=== PATIENT | male | born 1960 | race Hispanic/Latino ===

== ENCOUNTER → 2018-11-28 | Outpatient (CLI) | payer BC ==
--- NOTE | 2018-11-28 11:52 | Diagnostic Imaging Report ---
Right knee MRI without contrast. History: Knee pain. Medial meniscus tear. Swelling. Sports injury. Decreased range of motion. Comparison: None. Technique: Multiplanar multi-sequence MRI of the knee without contrast. Findings: Medial compartment: There is a complex tear involving the posterior horn and body segments of the medial meniscus best seen on sagittal image 17. The medial compartmental articular cartilage surfaces are thin with regions of fraying and deep fissuring. There are peripheral marginal osteophytes. The medial collateral ligament complex is intact Lateral compartment: There is an obliquely oriented lateral meniscus tear involving the posterior horn and body segments best seen on coronal image 13. The lateral compartmental articular cartilage surfaces are thin with regions of fraying and deep fissuring. There are peripheral marginal osteophytes. The lateral collateral complex is intact. Intercondylar notch: There is a chronic appearing near full-thickness posterior cruciate ligament tear. A few fibers appear to be intact. There is scarring and degeneration with chronic appearing partial tearing of the anterior cruciate ligament. The anterior cruciate ligament has a celery stalk appearance. Patellofemoral compartment: There is articular cartilage fraying and deep fissuring in the patellofemoral compartment. Extensor mechanism: The quadriceps and patellar tendons are normal. Other findings: There is a joint effusion and synovitis. There is no acute fracture, subluxation or avascular necrosis. There is a lobulated septated Arias's cyst with evidence of partial rupture into the posterior soft tissues. There is a thin medial plica. IMPRESSION: Complex medial meniscus tear with associated degenerative arthrosis in the medial compartment of the knee. Obliquely oriented lateral meniscus tear with associated degenerative arthrosis in the lateral compartment of the knee. Chronic appearing near full-thickness posterior cruciate ligament tear. A few fibers appear to be intact. There is scarring and degeneration with chronic appearing partial tearing of the anterior cruciate ligament. The anterior cruciate ligament has a celery stalk appearance. Joint effusion, synovitis, lobulated septated Arias's cyst with evidence of partial rupture into the posterior soft tissues and thin medial plica. Signed by: Dr. Franklyn Preciado M.D. on 11/28/2018 11:48 AM
--- NOTE | 2018-11-28 12:02 | Diagnostic Imaging Report ---
Left knee MRI without contrast. History: Knee pain. Medial meniscus tear. Swelling. Sports injury. Decreased range of motion. Comparison: None. Technique: Multiplanar multi-sequence MRI of the knee without contrast. Findings: Medial compartment: There is a complex tear involving the posterior horn and body segments of the medial meniscus best seen on sagittal image 26 and 27. The medial compartmental articular cartilage surfaces are thin with regions of fraying and deep fissuring. There are peripheral marginal osteophytes. The medial collateral ligament complex is intact Lateral compartment: There is maceration of the lateral meniscus. Meniscal tissue is displaced to the periphery. There are regions of full-thickness articular cartilage loss in the lateral compartment with underlying bone marrow edema. The lateral collateral complex is intact. There is what appears to be a small enchondroma in the distal lateral peripheral femoral condyle. There is what appears to be a degenerative cyst in the posterior lateral tibial plateau. Intercondylar notch: There is scarring and degeneration of the cruciate ligaments. The cruciate ligaments are otherwise intact. Patellofemoral compartment: There is articular cartilage fraying and fissuring in the patellofemoral compartment. Extensor mechanism: The quadriceps and patellar tendons are normal. Other findings: There is a joint effusion and marked synovitis with marked frondlike like hypertrophy of the fat predominantly in the suprapatellar space. There is no acute fracture, subluxation or avascular necrosis. There is a lobulated septated Arias's cyst. There is a thin medial plica. IMPRESSION: Maceration of the lateral meniscus with associated degenerative arthrosis in the lateral compartment of the knee. Complex medial meniscus tear with associated degenerative arthrosis in the medial compartment of the knee. Degeneration and scarring of the cruciate ligaments. The cruciate ligaments are otherwise intact. Joint effusion, synovitis, lobulated septated Arias's cyst, thin medial plica and marked frondlike like hypertrophy of the fat predominantly in the suprapatellar space Signed by: Dr. Franklyn Preciado M.D. on 11/28/2018 11:59 AM
== END ==
LOC: MRI 08:58
PROVIDERS: ATTEND Specialist
DX: S83.242A Other tear of medial meniscus, current injury, left knee, initial encounter (principal); S83.281A Other tear of lateral meniscus, current injury, right knee, initial encounter

== ENCOUNTER → 2018-12-20 | Day surgery (SDC) | payer BC ==
[~2018-12-20] MED LIST: BUPIVACAINE 0.5%/EPI 30 ML SDV INJ ONE; CEFAZOLIN SOD 2 GM/D5W 50ML 50 ML IV ONE; DESFLURANE 240 ML BTL INH ONE; DEXAMETHASONE SOD PHOS INJ 4 MG/ML VIAL ONE; EPHEDRINE SULFATE INJ 50 MG/10 ML SYR ONE; FENTANYL CITRATE/PF 100MCG/2 ML INJ ONE; GLYCOPYRROLATE INJ 1MG/ 5 ML SYR ONE; KETAMINE HCL INJ 50 MG/ML 10 ML VIAL ONE; LOSARTAN POTAS100 MG PO; MIDAZOLAM HCL 2 MG/2 ML VIAL ONE; ONDANSETRON HCL INJ 2MG/ML 2ML 2 MG/ML VIAL ONE; PROPOFOL IV EMULSION 10 MG/ML 20 ML VIAL ONE
--- OUTSIDE RECORDS SUMMARY | 2018-12-20 06:03 | XMS REPORT | Summary of Care ---
Author Author [facility] Organization [facility] Address Unknown Phone Unavailable Encounter HQ Sudheerr_morales(FIN) [id number] Date(s): 03/03/18 - 03/03/18 [facility] [address], [address] [place] [address]- [phone] Discharge Disposition: Home or Self Care Attending Physician: Kobe Watson MD Vital Signs Most recent to 1 oldest [Reference Range]: Height 167.64 cm (03/03/18 3:51 PM) Temperature Oral 97.0 DegF [96.4-99.1 DegF] (03/03/18 3:51 PM) Blood Pressure 141/91 mmHg [90-140/60-90 mmHg] *HI* (03/03/18 3:51 PM) Respiratory Rate 14 BRMIN [14-20 BRMIN] (03/03/18 3:51 PM) Peripheral Pulse 60 bpm Rate [60-100 bpm] (03/03/18 3:51 PM) Weight 99.261 kg (03/03/18 3:51 PM) Body Mass Index 35.32 m2 (03/03/18 3:51 PM) Problem List Condition Effective Dates Status Health Status Informant Hypertension(Confirm Active ed) Knee pain(Confirmed) Active Obesity(Confirmed) Active ED (erectile Active dysfunction)(Confirm ed) Skin tag(Confirmed) Active Allergies, Adverse Reactions, Alerts Substance Reaction Severity Status NKDA Active Medications valsartan 160 mg oral tablet 160 mg=1 tab, PO, Daily, # 90 tab, 1 Refill(s), Pharmacy: [facility] [id number] Start Date: 03/03/18 Status: Ordered Results No data available for this section Immunizations No data available for this section Procedures Procedure Date Related Diagnosis Body Site Status Colonoscopy1 05/15/12 Completed Operative procedure on finger2 Completed 1f/u 10 years 2right hand index finger Social History Social History Type Response Substance Abuse Use: None. Employment/School Status: Employed. Work/School description: mechanic and welder. Alcohol Current, Type Beer.1 Smoking Status Never smoker; Exposure to Tobacco Smoke None; Cigarette Smoking Last 365 Days No; Reg Smoking Cessation Counseling No entered on: 03/03/18 1socially Assessment and Plan No data available for this section
--- OUTSIDE RECORDS SUMMARY | 2018-12-20 06:03 | XMS REPORT | Continuity of Care Document ---
Author Author [facility] Address Unknown Phone Unavailable Problems Problem Status Onset Date Classification Date Reported Comments Source Hypertension Active Problem 10/09/2018 [facility] Obesity Active Problem 10/09/2018 [facility] ED (<span ID="[id number]">Confirmed</span>) Active Problem 10/09/2018 [facility] Anemia Active Problem 10/09/2018 [facility] IFG (<span ID="[id number]">Confirmed</span>) Active Problem 10/09/2018 [facility] Knee pain Active Problem 10/09/2018 [facility] Skin tag Active Problem 10/09/2018 [facility] Medications Medication Details Route Status Patient Instructions Ordering Provider Order Date Source losartan 100 mg oral tablet 100 mg=1 tab, PO, Daily, discontinue valsartan, # 90 tab, 1 Refill(s), Pharmacy: [facility] [id number] No Longer Active 03/21/2018 [facility] valsartan 160 mg oral tablet 160 mg=1 tab, PO, Daily, # 90 tab, 1 Refill(s), Pharmacy: [facility] [id number] Active 03/03/2018 [facility] valsartan 160 mg oral tablet 160 mg=1 tab, PO, Daily, # 30 tab, 3 Refill(s), Pharmacy: [facility] [id number] Active 09/09/2017 [facility] Allergies, Adverse Reactions, Alerts Substance Category Reaction Severity Reaction type Status Date Reported Comments Source Immunizations Immunization Date Given Site Status Last Updated Comments Source Results Order Name Results Value Reference Range Date Interpretation Comments Source Vital Signs Vital Sign Value Date Comments Source Weight 99.261 03/03/2018 [facility] BMI Calculated 35.32 03/03/2018 [facility] Height 167.64 cm 03/03/2018 [facility] Respitory Rate 14 03/03/2018 [facility] Temperature Oral (F) 97.0 F 03/03/2018 [facility] Heart Rate 60 03/03/2018 [facility] Systolic (mm Hg) 141 03/03/2018 [facility] Diastolic (mm Hg) 91 03/03/2018 [facility] BMI Calculated 34.67 09/09/2017 [facility] Weight 97.443 09/09/2017 [facility] Temperature Oral (F) 97.1 F 09/09/2017 [facility] Respitory Rate 14 09/09/2017 [facility] Height 167.64 cm 09/09/2017 [facility] Heart Rate 66 09/09/2017 [facility] Systolic (mm Hg) 134 09/09/2017 [facility] Diastolic (mm Hg) 76 09/09/2017 [facility] Encounters Location Location Details Encounter Type Encounter Number Reason For Visit Attending Provider ADM Date DC Date Status Source Outpatient [id number] NICANOR DAVID 10/08/2016 Active [facility] Outpatient [id number] NICANOR DAVID 10/25/2016 Active [facility] Outpatient [id number] NICANOR DAVID 11/09/2016 Active [facility] Outpatient [id number] NICANOR DAVID 01/14/2017 Active [facility] [id number] NICANOR DAVID 05/09/2017 Active [facility] Outpatient [id number] NICANOR DAVID 09/09/2017 Active [facility] Outpatient [id number] Nicanor David 09/09/2017 09/10/2017 [facility] Outpatient [id number] NICANOR DAVID 03/03/2018 Active [facility] Primary Care [facility] Outpatient [id number] Nicanor David 03/03/2018 03/04/2018 [facility] Phone Message [id number] 03/21/2018 03/23/2018 [facility] Outpatient [id number] NICANOR DAVID 08/11/2018 Active [facility] Outpatient [id number] NICANOR DAVID 03/02/2019 Active [facility] Procedures Procedure Code Date Perfomer Comments Source Colonoscopy<sup>1</sup> [id number] 05/15/2012 f/u 10 years [facility] Operative procedure on finger<sup>2</sup> [id number] right hand index finger [facility]
--- OUTSIDE RECORDS SUMMARY | 2018-12-20 06:03 | XMS REPORT | Summary of Care ---
Author Author [facility] Organization [facility] Address Unknown Phone Unavailable Encounter HQ Sudheerr_morales(FIN) [id number] Date(s): 09/09/17 - 09/09/17 [facility] [address], [address] [place] [address]- [phone] Discharge Disposition: Home or Self Care Attending Physician: Kobe Watson MD Vital Signs Most recent to 1 oldest [Reference Range]: Height 167.64 cm (09/09/17 8:35 AM) Temperature Oral 97.1 DegF [96.4-99.1 DegF] (09/09/17 8:35 AM) Blood Pressure 134/76 mmHg [90-140/60-90 mmHg] (09/09/17 8:35 AM) Respiratory Rate 14 BRMIN [14-20 BRMIN] (09/09/17 8:35 AM) Peripheral Pulse 66 bpm Rate [60-100 bpm] (09/09/17 8:35 AM) Weight 97.443 kg (09/09/17 8:35 AM) Body Mass Index 34.67 m2 (09/09/17 8:35 AM) Problem List Condition Effective Dates Status Health Status Informant Hypertension(Confirm Active ed) Obesity(Confirmed) Active ED (erectile Active dysfunction)(Confirm ed) Allergies, Adverse Reactions, Alerts Substance Reaction Severity Status NKDA Active Medications valsartan 160 mg oral tablet 160 mg=1 tab, PO, Daily, # 30 tab, 3 Refill(s), Pharmacy: [facility] 0 0429 Start Date: 09/09/17 Status: Ordered Results No data available for this section Immunizations No data available for this section Procedures Procedure Date Related Diagnosis Body Site Status Colonoscopy1 05/15/12 Completed Operative procedure on finger2 Completed 1f/u 10 years 2right hand index finger Social History Social History Type Response Substance Abuse Use: None. Employment/School Status: Employed. Work/School description: special class welder. Alcohol Current, Type Beer.1 Smoking Status Never smoker; Exposure to Tobacco Smoke None; Cigarette Smoking Last 365 Days No; Reg Smoking Cessation Counseling No entered on: 09/09/17 1socially Assessment and Plan No data available for this section
--- OUTSIDE RECORDS SUMMARY | 2018-12-20 06:03 | XMS REPORT | Summary of Care ---
Author Author [facility] Organization [facility] Address Unknown Phone Unavailable Encounter HQ Encntr_alias(FIN) [id number] Date(s): 03/21/18 - 03/22/18 [facility] [address], [address] [place] [address]- [phone] Vital Signs No data available for this section Problem List Condition Effective Dates Status Health Status Informant Anemia(Confirmed) Active Hypertension(Confirm Active ed) IFG (impaired Active fasting glucose)(Confirmed) Knee pain(Confirmed) Active Obesity(Confirmed) Active ED (erectile Active dysfunction)(Confirm ed) Skin tag(Confirmed) Active Allergies, Adverse Reactions, Alerts Substance Reaction Severity Status NKDA Active Medications losartan 100 mg oral tablet 100 mg=1 tab, PO, Daily, discontinue valsartan, # 90 tab, 1 Refill(s), Pharmacy: [facility] [id number] Start Date: 03/21/18 Stop Date: 08/11/18 Status: Discontinued Results No data available for this section Immunizations No data available for this section Procedures Procedure Date Related Diagnosis Body Site Status Colonoscopy1 05/15/12 Completed Operative procedure on finger2 Completed 1f/u 10 years 2right hand index finger Social History Social History Type Response Substance Abuse Use: None. Employment/School Status: Employed. Work/School description: maintenance shop welder. Alcohol Current, Type Beer.1 Smoking Status Never smoker; Exposure to Tobacco Smoke None; Cigarette Smoking Last 365 Days No; Reg Smoking Cessation Counseling No entered on: 08/11/18 1socially Assessment and Plan No data available for this section
--- OUTSIDE RECORDS SUMMARY | 2018-12-20 06:03 | XMS REPORT ---
Author [facility] Address Unknown Phone Unavailable Care Team Providers Care District Manager Name Role Phone MAYCOL GIBBONS Unavailable Unavailable Problems This patient has no known problems. Allergies, Adverse Reactions, Alerts This patient has no known allergies or adverse reactions. Medications This patient has no known medications. Results Test Description Test Time Test Comments Text Results Atomic Results Result Comments MRI KNEE LEFT WO 2018-11-28 11:48:00 [place] [address] Patient Name: KAYLAN JACOBO MR #: [id number] : 1960 Age/Sex: 58/M Req #: [id number] Adm Physician: Ordered by: MAYCOL GIBBONS MD Report #: [id number] Location: MRI Room/Bed: Procedure: [id number] MRI/MRI KNEE LEFT WO Exam Date: Exam Time: REPORT STATUS: Signed Left knee MRI without contrast. History: Knee pain. Medial menisc us tear. Swelling. Sports injury. Decreased range of motion. Comparison: None. Technique: Multiplanar multi-sequence MRI of the knee without contrast. Findings: Medial compartment: There is a complex tear involving the posterior horn and body segments of the medial meniscus best seen on sagittal image 26 and 27. The medial compartmental articular cartilage surfaces are thin with regions of fraying and deep fissuring. There are peripheral marginal osteophytes. The medial collateral ligament complex is intact Lateral compartment: There is maceration of the lateral meniscus. Meniscal tissue is displaced to the periphery. There are regions of full- thickness articular cartilage loss in the lateral compartment with underlying bone marrow edema. The lateral collateral complex is intact. There is what appears to be a small enchondroma in the distal lateral peripheral femoral condyle. There is what appears to be a degenerative cyst in the posterior lateral tibial plateau. Intercondylar notch: There is scarring and degeneration of the cruciate ligaments. The cruciate ligaments are otherwise intact. Patellofemoral compartment: There is articular cartilage fraying and fissuring in the patellofemoral compartment. Extensor mechanism: The quadriceps and patellar tendons are normal. Other findings: There is a joint effusion and marked synovitis with marked frondlike like hypertrophy of the fat predominantly in the suprapatellar space. There is no acute fracture, subluxation or avascular necrosis. There is a lobulated septated Arias's cyst. There is a thin medial plica. IMPRESSION: Maceration of the lateral meniscus with associated degenerative arthrosis in the lateral compartment of the knee. Complex medial meniscus tear with associated degenerative arthrosis in the medial compartment of the knee. Degeneration and scarring of the cruciate ligaments. The cruciate ligaments are otherwise intact. Joint effusion, synovitis, lobulated septated Arias's cyst, thin medial plica and marked frondlike like hypertrophy of the fat predominantly in the suprapatellar space Signed by: Dr. Franklyn Preciado M.D. on 11/28/2018 11:59 AM Dictated By: FRANKLYN PRECIADO MD, MD 1159 Transcribed By: TARA on 11/28/18 1159 COPY TO: MAYCOL GIBBONS MD MRI RIGHT KNEE WO 2018-11-28 11:36:00 [place] [address] Patient Name: KAYLAN JACOBO MR #: [id number] : 1960 Age/Sex: 58/M Req #: [id number] Adm Physician: Ordered by: MAYCOL GIBBONS MD Report #: [id number] Location: MRI Room/Bed: Procedure: [id number] MRI/MRI RIGHT KNEE WO Exam Date: Exam Time: REPORT STATUS: Signed Right knee MRI without contrast. History: Knee pain. Medial meni scus tear. Swelling. Sports injury. Decreased range of motion. Comparison: None. Technique: Multiplanar multi-sequence MRI of the knee without contrast. Findings: Medial compartment: There is a complex tear involving the posterior horn and body segments of the medial meniscus best seen on sagittal image 17. The medial compartmental articular cartilage surfaces are thin with regions of fraying and deep fissuring. There are peripheral marginal osteophytes. The medial collateral ligament complex is intact Lateral compartment: There is an obliquely oriented lateral meniscus tear involving the posterior horn and body segments best seen on coronal image 13. The lateral compartmental articular cartilage surfaces are thin with regions of fraying and deep fissuring. There are peripheral marginal osteophytes. The lateral collateral complex is intact. Intercondylar notch: There is a chronic appearing near full-thickness posterior cruciate ligament tear. A few fibers appear to be intact. There is scarring and degeneration with chronic appearing partial tearing of the anterior cruciate ligament. The anterior cruciate ligament has a celery stalk appearance. Patellofemoral compartment: There is articular cartilage fraying and deep fissuring in the patellofemoral compartment. Extensor mechanism: The quadriceps and patellar tendons are normal. Other findings: There is a joint effusion and synovitis. There is no acute fracture, subluxation or avascular necrosis. There is a lobulated septated Arias's cyst with evidence of partial rupture into the posterior soft tissues. There is a thin medial plica. IMPRESSION: Complex medial meniscus tear with associated degenerative arthrosis in the medial compartment of the knee. Obliquely oriented lateral meniscus tear with associated degenerative arthrosis in the lateral compartment of the knee. Chronic appearing near full-thickness posterior cruciate ligament tear. A few fibers appear to be intact. There is scarring and degeneration with chronic appearing partial tearing of the anterior cruciate ligament. The anterior cruciate ligament has a celery stalk appearance. Joint effusion, synovitis, lobulated septated Arias's cyst with evidence of partial rupture into the posterior soft tissues and thin medial plica. Signed by: Dr. Franklyn Preciado M.D. on 11/28/2018 11:48 AM Dictated By: FRANKLYN PRECIADO MD, MD 1148 Transcribed By: TARA on 11/28/18 1148 COPY TO: MAYCOL GIBBONS MD
--- OUTSIDE RECORDS SUMMARY | 2018-12-20 06:03 | XMS REPORT | Summary of Care ---
Author Author JEANE CHANG M.D., GRSIEL Organization Unknown Address [facility] Phone Unavailable Care Team Providers Care Medicare Sales Representative Name Role Phone JEANE CHANG M.D., GRISEL Unavailable Unavailable Functional Status Name Dates Details Functional status health issues are not documented Status: Name Dates Details Cognitive status health issues are not documented Status: Problems Name Dates Details Localized osteoarthritis of both knees (715.36, M17.0) Status: Active Primary localized osteoarthritis of knees, bilateral (715.16, M17.0) Status: Active Bilateral knee pain (719.46, M25.561) Status: Active Medications Name Dates Details Losartan Potassium TABS Active Allergies and Adverse Reactions Name Dates Details No Known Drug Allergies (Allergy) Status: Active Past Medical History Name Dates Details History of No pertinent past surgical history Status: Resolved No pertinent past medical history Status: Resolved Procedures Procedure Dates Details Procedures not documented Immunization Name Dates Details Immunizations not documented Family History Name Dates Details Family history of hypertension (V17.49, Z82.49) Comments: Family History Status: Active Social History Name Dates Details Unknown if ever smoked Vital Signs Date Test Result Details :05 Height 65 in Status: Weight 218 lb Status: Body Mass Index Calculated 36.28 kg/m2 Status: Body Surface Area Calculated 2.05 m2 Status: Results Date Description Value Details :05 [U] XR KNEE 3 VWS BILATERAL XR KNEE 3 VWS BILATERAL Images acquired, not reported on this accession number. Plan of Care Name Dates Details Planned Observations Planned Goals not documented Planned Encounters Physical Therapy Referral Ortho Interventions Provided Labs/Procedures/Imaging* [U] XR KNEE 3 VWS BILATERAL; Done: 30 Mar 2018 Plan* Patient Education/Instructions: * Patient Education Provided * Reassurance * Patient/Parent to call or return with any abnormal changes * Orders: * Physical Therapy * Medications: * Medications (prescribed or recommended at this visit): * - Recommend use of OTC NSAIDSOTC NSAIDS * Acetaminophen * - Pain patch * - Topical anti-inflammatory prescribed. * Follow Up: * Return to the clinic in 6 weeks or as needed. Instructions Name Dates Details Instructions not documented Encounters Appointment; GRISEL KAN M.D. Encounter Diagnosis: Problem not documented On: 30-Mar-2018 7:00
--- NOTE | 2018-12-20 07:35 | NUR ---
SPIRITUAL CARE - Pre-Surgery Assessment: Pt in bed. Pt reported supportive attention from family and friends. Intervention: I provided pastoral presence, hospitality, and sympathetic listening. I acquainted pt with availability of zipper trimmer hand while hospitalized. Outcome: Pt expressed appreciation for visit. No need for follow up indicated at this time. ENRIQUE Chavezlain Spiritual Care Department O: [phone] Pager: [phone] ([phone] number calling from)
[2018-12-20 10:40] VITALS: BP 148/88
--- NOTE | 2018-12-25 16:10 | Operative Report ---
DATE OF PROCEDURE: SURGEON: Raz Templeton MD PREOPERATIVE DIAGNOSES: Right knee medial meniscus tear, right knee degenerative joint disease of the knee. POSTOPERATIVE DIAGNOSES: Right knee medial meniscus tear right knee lateral meniscus tear, right knee symptomatic medial shelf plica right knee intra-articular loose body. OPERATION AND PROCEDURE PERFORMED: The patient underwent a right knee examination under anesthesia, seizure right knee arthroscopy, right knee partial medial meniscectomy, right partial lateral meniscectomy, right knee chondroplasty of the patella, the trochlea, the medial femoral condyle, the medial to the lateral femoral condyle and lateral tibial plateau. The patient also underwent arthroscopic resection of a medial shelf plica and removal of the intra-articular loose. [employer]ERING CONTRACTOR: Daisy Allen. ANESTHESIA: General endotracheal. IV FLUIDS: Per the anesthesia record. BRIEF DISCUSSION OF THE PATIENT'S OPERATIVE PROCEDURE: Mr. Gee was taken to the operative room, placed in supine position on the operating table. Following induction of general anesthesia as well as the endotracheal intubation. The patient's right lower extremity was examined under anesthesia. He was found to have a mild effusion at the knee joint, but otherwise ligamentously stable knee. The patient's right lower extremity was and draped in standard surgical fashion. A two-port technique used to provide this patient arthroscopic reduction of the knee joint. Examination of suprapatellar pouch, medial lateral gutters found no evidence of loose bodies. There was evidence of a large inflamed medial shelf plica interdigitating between the patella and trochlear surfaces. 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 Scope was advanced to the medial compartment. Examination of the medial compartment demonstrated an intra-articular loose body. This was removed using a grasper. There was also a torn medial meniscus and chondromalacia of the articulating surfaces. A combination of biting forceps and motorized shaver used to resect the torn portion of meniscus. Chondroplasty of the medial femoral condyle limited to plateau performed at this time. Scope was advanced to the intercondylar notch, the anterior cruciate was identified and found to be intact. Scope was advanced to lateral compartment. Examination of the lateral compartment demonstrated a torn lateral meniscus. There was also chondromalacia articulating surfaces. A combination of biting forceps and motorized shaver were used to resect the torn portion of meniscus. Chondroplasties of the lateral femoral condyle, lateral tibial plateau performed at this time. Description advanced patella pouch in the medial plica was resected. A chondroplasty of the patella and trochlear surfaces were performed. The knee was deflated in sterile normal saline. The portal sites were closed using 4-0 nylon suture. The portal sites itself were then injected with 0.5% Marcaine with epinephrine. Sterile dressings were applied. The patient was awakened to the postanesthesia care unit in stable condition. MD JHON Fleming/CHANEL /[id number]
== END | disposition home or self-care (01) ==
LOC: OR 05:59
PROVIDERS: ATTEND Specialist
DX: S83.221A Peripheral tear of medial meniscus, current injury, right knee, initial encounter (principal); S83.261A Peripheral tear of lateral meniscus, current injury, right knee, initial encounter; S83.262A Peripheral tear of lateral meniscus, current injury, left knee, initial encounter; S83.222A Peripheral tear of medial meniscus, current injury, left knee, initial encounter; M17.0 Bilateral primary osteoarthritis of knee; M67.51 Plica syndrome, right knee; M23.41 Loose body in knee, right knee; M22.41 Chondromalacia patellae, right knee; I10 Essential (primary) hypertension; X58.XXXA Exposure to other specified factors, initial encounter; Z01.810 Encounter for preprocedural cardiovascular examination; Z68.33 Body mass index [BMI] 33.0-33.9, adult
CPT/HCPCS: 29880; 93005; J0690; J1100; J2250; J2405; J2704; J3490

== ENCOUNTER → 2019-01-26 | Outpatient (RCR) | payer BC ==
[~2019-01-26] MED LIST changes: -BUPIVACAINE 0.5%/EPI 30 ML SDV INJ ONE; -CEFAZOLIN SOD 2 GM/D5W 50ML 50 ML IV ONE; -DESFLURANE 240 ML BTL INH ONE; -DEXAMETHASONE SOD PHOS INJ 4 MG/ML VIAL ONE; -EPHEDRINE SULFATE INJ 50 MG/10 ML SYR ONE; -FENTANYL CITRATE/PF 100MCG/2 ML INJ ONE; -GLYCOPYRROLATE INJ 1MG/ 5 ML SYR ONE; -KETAMINE HCL INJ 50 MG/ML 10 ML VIAL ONE; -MIDAZOLAM HCL 2 MG/2 ML VIAL ONE; -ONDANSETRON HCL INJ 2MG/ML 2ML 2 MG/ML VIAL ONE; -PROPOFOL IV EMULSION 10 MG/ML 20 ML VIAL ONE
== END ==
LOC: PT 01-04 14:37
PROVIDERS: ATTEND Specialist
DX: M17.11 Unilateral primary osteoarthritis, right knee (principal); M62.81 Muscle weakness (generalized); M25.561 Pain in right knee; M25.661 Stiffness of right knee, not elsewhere classified; R26.2 Difficulty in walking, not elsewhere classified

== ENCOUNTER 2021-01-28 09:05 | Emergency (ER) | payer SELFPAY ==
[~2021-01-28] VITALS: Ht 172.7 cm; Wt 72.6 kg
[2021-01-28] MEDS ORDERED: TETANUS/DIPHTHERIA TOX ADULT 0.5 ML SYR IM ONE (09:30)
[2021-01-28] MEDS ORDERED: LIDOCAINE HCL 1% LOCAL INJ 20 ML VIAL INJ ONE (09:30)
[2021-01-28] MEDS ORDERED: TETANUS/DIPHTHERIA TOX ADULT 0.5 ML SYR ONE (09:31)
[2021-01-28] MEDS ORDERED: LIDOCAINE HCL 1% LOCAL INJ 20 ML VIAL ONE (09:31)
[2021-01-28] MEDS ORDERED: CEPHALEXIN500 MG PO (10:34)
[2021-01-28 10:58] VITALS: BP 120/62
== END 2021-01-28 10:58 | disposition home or self-care (01) ==
LOC: ER 09:29
DX: S61.011A Laceration without foreign body of right thumb without damage to nail, initial encounter (principal); W29.3XXA Contact with powered garden and outdoor hand tools and machinery, initial encounter
CPT/HCPCS: 12001; 73140; 90471; 90714; 99283; J2001

== ENCOUNTER 2021-02-04 10:23 | Emergency (ER) | payer BC ==
[~2021-02-04] VITALS: Ht 172.7 cm; Wt 72.6 kg
[~2021-02-04 10:23] MED LIST changes: +CEPHALEXIN500 MG PO
== END 2021-02-04 12:09 | disposition home or self-care (01) ==
LOC: ER 11:09
DX: Z48.02 Encounter for removal of sutures (principal)
CPT/HCPCS: 99283